=== PATIENT | female | born 1955 | race Caucasian/White ===

== ENCOUNTER 2017-03-13 07:05 | Day surgery (SDC) | payer MEDICARE, OTHER ==
[~2017-03-13] VITALS: Ht 149.9 cm; Wt 86.2 kg
[~2017-03-13 07:05] MED LIST: ADULT LOW DOSE81 MG PO; AZATHIOPRINE50 MG PO; CALCIUM CARBON650 MG PO; CALCIUM500 MG PO; CLARITIN10 M2 PO; CORGARD40 MG PO; FOLIC ACID1 MG PO; LACTULOSE20 GM/30 M PO; LASIX40 MG PO; LEVAQUIN250 MG PO; MAG-OXIDE400 MG PO; MULTIVITAMINS1 EAC7 PO; NADOLOL40 MG PO; NORCO 5-325 TA1 EACH PO; OMEPRAZOLE20 MG PO; PRILOSEC20 MG PO; PROVENTIL HFA6.7 GM INH; SPACE CHAMBER1 EACH MC; SPIRONOLACTONE100 MG PO; SPIRONOLACTONE25 MG PO; TACROLIMUS0.5 MG PO; VITAMIN D2000 UNI1 PO; XIFAXAN550 MG PO; ZOLOFT50 MG PO
--- NOTE | 2017-03-13 10:03 | NUR ---
PT SUPPORTED BY HER AND MOTHER PRESENT FOR SUPPORT. PT WAS FRIENDLY, AND SEEMED TO BE COMFORTABLE WITH TODAY. PT REQUESTED PRAYER, WILL CONTINUE TO FOLLOW
--- NOTE | 2017-03-13 10:45 | NUR ---
03/13/17 1045 [facility] SAT 100, O2 REMOVED.
[2017-03-13] MEDS ORDERED: IBUPROFEN600 MG PO (10:53)
[2017-03-13] MEDS ORDERED: OXYCODON-ACETA1 EAC2 PO (10:53)
--- NOTE | 2017-03-13 11:55 | NUR ---
LE 1130: PT IS BACK TO DS FROM PACU. CALL LIGHT IS WITHIN REACH. WATER AND CRACKERS AT THE BEDSIDE. NO OTHER C/O'S AT THIS TIME. WILL REASSESS WITHIN THE HOUR.
--- NOTE | 2017-03-16 12:15 | OR ---
[facility] [address], [place] [address] Signed DATE OF PROCEDURE: 03/13/17 PREOPERATIVE DIAGNOSES History of hepatic transplant. Incisional hernia and confluence of incisions in upper abdomen. Umbilical hernia. POSTOPERATIVE DIAGNOSES History of hepatic transplant. Incisional hernia and confluence of incisions in upper abdomen. Umbilical hernia. PROCEDURE PERFORMED Repair of upper abdominal incisional hernia. Implantation of Prolene mesh (underlay technique, properitoneal space and reapproximation of fascial defect). Repair of umbilical hernia. SURGEON: Ab Bernard MD. ANESTHESIA General endotracheal (Cheryl Kent CRNA) and local 20 mL of 0.25% Marcaine with Epinephrine. CARTON LINER: Nurse. INDICATION This 61-year-old white woman underwent hepatic transplantation in 2012 for fatty liver related hepatic failure. She is a patient of Dr. Elio Rodriguez. She has developed a hernia at the confluence of chevron and upper midline incision. Pain in the epigastric area. CT scan confirms this to be approximately 4 cm to 6 cm in size and without sign of incarceration of hollow viscus. There was incidentally noted to be an umbilical hernia at least 2 cm in size. She is admitted to undergo a hernia repair of both of the sites, understand the risks of bleeding, infection, recurrence, and so on. FINDINGS The epigastric incisional hernia defect was approximately 5 cm or so. The properitoneal space was well-developed and Prolene mesh was implanted in the properitoneal space. Transverse reapproximation of fascial layer was able to be accomplished. Prolene pledgets were used to better secure the sutures of the mesh as well as the transverse fascial reapproximation. Electronically Signed By: AB BERNARD MD 03/16/17 1215 PATIENT NAME: VERONICA GARCIA OPERATIVE REPORT DATE OF : 59 PHYSICIAN: AB BERNARD MD REPORT #: [id number] REPORT IS CONFIDENTIAL AND NOT TO BE RELEASED WITHOUT AUTHORIZATION [facility] [address], [place] [address] Signed At the umbilicus the fascial defect was rather small certainly no greater than 2 cm and had omental fat within it. This hernia was repaired by primary and transverse reapproximation of the fascia using Prolene suture and Prolene mesh pledgets. DESCRIPTION OF PROCEDURE The patient was brought to the operating room, given a general endotracheal anesthetic. She received preoperative antibiotic Ancef, sequential compression device stockings were used and heparin subcutaneously administered. The abdomen was prepared with a Chlorhexidine solution and draped sterilely. An incision was made at the confluence of the incisions of the upper abdomen. Dissection carried through the subcutaneous tissue with blunt and electrocautery dissection identifying well in the hernia sac. There was omental fat within it. The hernia sac was dissected free from the surrounding subcutaneous tissue. It was about the size of a plum. Further dissection allowed for fascial definition more clearly. The fascial defect was approximately 5 cm to 6 cm in size. With blunt dissection, the properitoneal space was developed. The small defect in the hernia sac showed the hernia to contain only omentum. The hernia sac was reapproximated 2-0 Vicryl suture. Once the fascial edge was developed in the properitoneal space circumferentially for at least 3 cm, plans were made for implantation of mesh. A segment of Prolene mesh was cut into an oblong configuration and secured into the properitoneal space with interrupted 0 Prolene sutures with Prolene pledgets. Good coverage of the defect was noted. The fascia was able to be reapproximated transversely again using 0 Prolene sutures with Prolene pledgets. This time in horizontal mattress configuration, 10 mL of 0.25% Marcaine was injected locally and Dee's layer reapproximated with interrupted 2-0 Vicryl after irrigation. The skin was then closed with running subcuticular 3-0 Vicryl. Attention was turned to the umbilicus. An infraumbilical circumumbilical incision was made. Dissection carried through the subcutaneous tissue bluntly. The hernia was typical umbilical type with a column of fatty tissue extending to the deep dermis of the umbilicus. This was fully completely and transected at the base of the dermis of the umbilical skin. The hernia sac contained omentum. The omentum was returned to the abdominal cavity and the properitoneal space develops more fully. The fascial defect was rather small, certainly no more than 2 cm. It was deemed most appropriate to primarily repair this without mesh. An 0-Prolene suture was used in a horizontal mattress configuration, again using Prolene pledgets for stability to transversely reapproximate the defect. Four such sutures were placed. A 10 mL of 0.25% Marcaine with epinephrine was injected locally. Irrigation was undertaken. Dee's layer was reapproximated with interrupted 3-0 Vicryl. The skin was closed running subcuticular 3-0 Vicryl. Steri-Strips were applied to both wounds, as were Mepilex silver sponge dressing and an OpSite. The patient was ultimately extubated and transferred to recovery in good condition having suffered no complication. Blood loss was minimal. Electronically Signed By: AB BERNARD MD 03/16/17 1215 PATIENT NAME: VERONICA GARCIA OPERATIVE REPORT DATE OF : 59 PHYSICIAN: AB BERNARD MD REPORT #: [id number] REPORT IS CONFIDENTIAL AND NOT TO BE RELEASED WITHOUT AUTHORIZATION [address] [place] [address] Signed MD MICHAEL Martini/Jannette /[id number] cc: Elio Rodriguez MD Electronically Signed By: AB BERNARD MD 03/16/17 1215 PATIENT NAME: VERONICA GARCIA OPERATIVE REPORT DATE OF : 59 PHYSICIAN: AB BERNARD MD REPORT #: [id number] REPORT IS CONFIDENTIAL AND NOT TO BE RELEASED WITHOUT AUTHORIZATION
== END 2017-03-13 14:20 | disposition home or self-care (01) ==
LOC: DS 07:05
PROVIDERS: Surgery
PROC: 0WUF0JZ Supplement Abdominal Wall with Synthetic Substitute, Open Approach (ICD-10-PCS; principal; 2017-03-13 08:45)
PROC: 0WQF0ZZ Repair Abdominal Wall, Open Approach (ICD-10-PCS; 2017-03-13 08:45)
DX: K43.2 Incisional hernia without obstruction or gangrene (principal); K42.9 Umbilical hernia without obstruction or gangrene; K21.9 Gastro-esophageal reflux disease without esophagitis; K75.81 Nonalcoholic steatohepatitis (NASH); K74.60 Unspecified cirrhosis of liver; E66.9 Obesity, unspecified; Z94.4 Liver transplant status; Z68.38 Body mass index [BMI] 38.0-38.9, adult; Z79.82 Long term (current) use of aspirin; Z79.899 Other long term (current) drug therapy; Z79.52 Long term (current) use of systemic steroids; Z90.89 Acquired absence of other organs; Z90.710 Acquired absence of both cervix and uterus; Z98.890 Other specified postprocedural states
CPT/HCPCS: 00750; C1781; J0330; J0690; J1644; J1885; J2250; J2405; J2550; J2704; J3010; J7120

== ENCOUNTER 2017-10-26 21:03 | Emergency (ER) | payer MEDICARE, OTHER ==
[~2017-10-26] VITALS: Ht 149.9 cm; Wt 86.2 kg
[~2017-10-26 21:03] MED LIST changes: +IBUPROFEN600 MG PO; -OMEPRAZOLE20 MG PO; +OXYCODON-ACETA1 EAC2 PO
[2017-10-26] MEDS ORDERED: OMEPRAZOLE20 MG PO (21:41)
--- OUTSIDE RECORDS SUMMARY | 2017-10-26 22:18 | XMS | Clinical Summary ---
Demographics + + + | Address | [address] | | | [place] [address] | + + + | Home Phone | | + + + | Preferred Language | Unknown | + + + | Marital Status | | + + + | Gnosticist Affiliation | Unknown | + + + | Race | Unknown | + + + | Ethnic Group | Unknown | + + + Author + + + | Author | [facility] | | | and [place] | + + + | Organization | [facility] | | | and [place] | + + + | Address | Unknown | + + + | Phone | Unavailable | + + + Support + + + + + | Name | Relationship | Address | Phone | + + + + + | Chaparrita Green | ECON | [address] | | | | | [place] | | | | | [address] | | + + + + + | Melchor Lopez | ECON | [address] | | | | | [place] | | | | | [address] | | + + + + + Care Team Providers + +------+ + | Care Account Administrator Name | Role | Phone | + +------+ + PP | Unavailable | + +------+ + Allergies Not on File Current Medications Not on file Active Problems Not on file Social History + +-------+ +--------+------+ | Tobacco Use | Types | Packs/Day | Years | Date | | | | | Used | | + +-------+ +--------+------+ | Never Assessed | | | | | + +-------+ +--------+------+ + + + | Sex Assigned at | Date Recorded | | | | + + + | Not on file | | + + + Plan of Treatment + + + + + | Health Maintenance | Due Date | Last Done | Comments | + + + + + | Hepatitis C | | | | | Screening | 7 | | | + + + + + | Vaccine: | | | | | Dtap/Tdap/Td (1 - | 6 | | | | Tdap) | | | | + + + + + | CERVICAL CANCER | | | | | SCREENING (PAP EVERY | 8 | | | | 3 YEARS 21-64 ) | | | | + + + + + | BREAST CANCER | | | | | SCREENING (MAMM Q2 | 7 | | | | YEARS 50-74) | | | | + + + + + | COLON CANCER | | | | | SCREENING | 7 | | | | (COLONOSCOPY EVERY | | | | | 10 YEARS 50-75) | | | | + + + + + | Vaccine: Influenza | | | | | (Season Ended) | 8 | | | + + + + + Results Not on filefrom Last 3 Months"
--- OUTSIDE RECORDS SUMMARY | 2017-10-26 22:18 | XMS | Encounter Summary ---
Demographics + + + | Address | [address] | | | [place] [address] | + + + | Home Phone | | + + + | Preferred Language | Unknown | + + + | Marital Status | | + + + | Cheondoism Affiliation | NRP | + + + | Race | White | + + + | Ethnic Group | Not or | + + + Author + + + | Author | [facility] | + + + | Organization | [facility] | + + + | Address | Unknown | + + + | Phone | Unavailable | + + + Support + + + + + | Name | Relationship | Address | Phone | + + + + + | Cher Lopez | ECON | [address] | | | | | [place] | | | | | [address] | | + + + + + | Chaparrita Green | ECON | Unknown | | + + + + + | Bruna Murillo | ECON | Unknown | | + + + + + Care Team Providers + +------+ + | Care Show Design Supervisor Name | Role | Phone | + +------+ + | Elio Rodriguez MD | PCP | | + +------+ + Encounter Details +--------+ + + + + | Date | Type | Department | Care Team | Description | +--------+ + + + + | 09/16/ | Abstract | Transplant | [facility] | | | 2017 | | Coordinators [address] MD [address] | | | | | [facility] | [place], [place] | | | | | Road [place], [place] | [address] | | | | | [address] | [phone] | | | | | [phone] | | | +--------+ + + + + Social History + +-------+ +--------+------+ | Tobacco Use | Types | Packs/Day | Years | Date | | | | | Used | | + +-------+ +--------+------+ | Never Smoker | | | | | + +-------+ +--------+------+ + + +---------+ + | Alcohol Use | Drinks/We | oz/Week | Comments | | | ek | | | + + +---------+ + | No | | | | + + +---------+ + + + + | Sex Assigned at | Date Recorded | | | | + + + | Not on file | | + + + as of this encounter Plan of Treatment +--------+---------+ + + + | Date | Type | Specialty | Care Team | Description | +--------+---------+ + + + | 04/28/ | Office | Liver Transplant | [facility] | | | 2018 | Visit | | MD Ino [address] | | | | | | [place], [place] | | | | | | [address] | | | | | | [phone] | | | | | | | | +--------+---------+ + + + as of this encounter Results LIVER TRANSPLANT POST PANEL (EXT RESULTS) (07/03/2017 9:08 AM) + + + + | Component | Value | Ref Range | + + + + | SODIUM, PLASMA (LAB) | 140 | mmol/L | + + + + | POTASSIUM, PLASMA | 4.8 | mmol/L | | (LAB) | | | + + + + | CHLORIDE, PLASMA | 106 | mmol/L | | (LAB) | | | + + + + | TOTAL CO2, PLASMA | 24 | mmol/L | | (LAB) | | | + + + + | GLUCOSE, PLASMA | 145 (A) | 65 - 110 mg/dL | | (LAB) | | | + + + + | BUN, PLASMA (LAB) | 27 | mg/dL | + + + + | CREATININE PLASMA | 1.54 | mg/dL | | (LAB) | | | + + + + | CALCIUM, PLASMA | 9.4 | mg/dL | | (LAB) | | | + + + + | PHOSPHORUS, PLASMA | 2.5 | mg/dL | | (LAB) | | | + + + + | MAGNESIUM,PLASMA | 1.8 | mg/dL | + + + + | TOTAL PROTEIN, | 6.2 | g/dL | | PLASMA (LAB) | | | + + + + | ALBUMIN, PLASMA | 4.2 | g/dL | | (LAB) | | | + + + + | BILIRUBIN TOTAL | 0.9 | Transcutaneous | | | | Bilirubinometer | + + + + | BILIRUBIN DIRECT | 0.2 | mg/dL | + + + + | ALK PHOS | 86 | U/L | + + + + | AST(SGOT) | 28 | U/L | + + + + | ALT (SGPT) | 13 | U/L | + + + + | URIC ACID, PLASMA | 7.4 | mg/dL | | (LAB) | | | + + + + | WHITE CELL COUNT | 3.1 | K/cu mm | + + + + | HEMATOCRIT | 34.8 | % | + + + + | HEMOGLOBIN | 11.7 (A) | 12.1999 - 15 g/dL | + + + + | PLATELET COUNT | 118 | K/cu mm | + + + + | TACROLIMUS (FK 506) | 5.8 | ng/mL | + + + + + + + | Specimen | Performing Laboratory | + + + | Blood | [facility] [address] [place] [place] | + + + in this encounter Visit Diagnoses Not on filein this encounter"
--- OUTSIDE RECORDS SUMMARY | 2017-10-26 22:18 | XMS | Encounter Summary ---
Demographics + + + | Address | [address] | | | [place] [address] | + + + | Home Phone | | + + + | Preferred Language | Unknown | + + + | Marital Status | | + + + | Episcopal Affiliation | NRP | + + + | Race | White | + + + | Ethnic Group | Not or | + + + Author + + + | Author | [facility] | + + + | Organization | [facility] | + + + | Address | Unknown | + + + | Phone | Unavailable | + + + Support + + + + + | Name | Relationship | Address | Phone | + + + + + | Cher Lopez | ECON | [address] | | | | | [place] | | | | | [address] | | + + + + + | Chaparrita Green | ECON | Unknown | | + + + + + | Bruna Murillo | ECON | Unknown | | + + + + + Care Team Providers + +------+ + | Care Buckshot Swage Operator Name | Role | Phone | + +------+ + | Elio Rodriguez MD | PCP | | + +------+ + Encounter Details +--------+ + + + + | Date | Type | Department | Care Team | Description | +--------+ + + + + | 09/10/ | Abstract | Transplant | [facility] | | | 2017 | | Coordinators [address]inn[address] MD [address] | | | | | [facility] | [place], [place] | | | | | [place], [place] | [address] | | | | | [address] | [phone] | | | | | [phone] | | | +--------+ + + + [...] 2018 | Visit | | MD Ino [address] | | | | | | [place], [place] | | | | | | [address] | | | | | | [phone] | | | | | | | | +--------+---------+ + + + as of this encounter Results LIVER TRANSPLANT POST PANEL (EXT RESULTS) (09/09/2017 9:33 AM) + + + + | Component | Value | Ref Range | + + + + | SODIUM, PLASMA (LAB) | 140 | mmol/L | + + + + | POTASSIUM, PLASMA | 4.7 | mmol/L | | (LAB) | | | + + + + | CHLORIDE, PLASMA | 109 | mmol/L | | (LAB) | | | + + + + | TOTAL CO2, PLASMA | 23 | mmol/L | | (LAB) | | | + + + + | GLUCOSE, PLASMA | 128 (A) | 65 - 110 mg/dL | | (LAB) | | | + + + + | BUN, PLASMA (LAB) | 36 | mg/dL | + + + + | CREATININE PLASMA | 1.71 | mg/dL | | (LAB) | | | + + + + | CALCIUM, PLASMA | 9.6 | mg/dL | | (LAB) | | | + + + + | PHOSPHORUS, PLASMA | 3.1 | mg/dL | | (LAB) | | | + + + + | MAGNESIUM,PLASMA | 1.8 | mg/dL | + + + + | TOTAL PROTEIN, | 6.7 | g/dL | | PLASMA (LAB) | | | + + + + | ALBUMIN, PLASMA | 4.4 | g/dL | | (LAB) | | | + + + + | BILIRUBIN TOTAL | 1.1 | Transcutaneous | | | | Bilirubinometer | + + + + | BILIRUBIN DIRECT | 0.2 | mg/dL | + + + + | ALK PHOS | 106 | U/L | + + + + | AST(SGOT) | 33 | U/L | + + + + | ALT (SGPT) | 18 | U/L | + + + + | URIC ACID, PLASMA | 8.2 | mg/dL | | (LAB) | | | + + + + | WHITE CELL COUNT | 3.4 | K/cu mm | + + + + | HEMATOCRIT | 32.7 | % | + + + + | HEMOGLOBIN | 11.4 (A) | 12.1999 - 15 g/dL | + + + + | PLATELET COUNT | 128 | K/cu mm | + + + + | TACROLIMUS (FK 506) | 5.2 | ng/mL | + + + + + + + | Specimen | Performing Laboratory | + + + | Blood | [facility] [address] [place] | + + + in this encounter Visit Diagnoses Not on filein this encounter"
--- OUTSIDE RECORDS SUMMARY | 2017-10-26 22:18 | XMS | Encounter Summary ---
Demographics + + + | Address | [address] | | | [place] [address] | + + + | Home Phone | | + + + | Preferred Language | Unknown | + + + | Marital Status | | + + + | Gnosticism Affiliation | NRP | + + + | Race | White | + + + | Ethnic Group | Not or | + + + Author + + + | Author | [facility] | + + + | Organization | [facility] | + + + | Address | Unknown | + + + | Phone | Unavailable | + + + Support + + + + + | Name | Relationship | Address | Phone | + + + + + | Cher Lopez | ECON | [address] | | | | | [place] | | | | | [address] | | + + + + + | Chaparrita Green | ECON | Unknown | | + + + + + | Bruna Murillo | ECON | Unknown | | + + + + + Care Team Providers + +------+ + | Care Independent Trader Name | Role | Phone | + +------+ + | Elio Rodriguez MD | PCP | | + +------+ + Reason for Visit + + + | Reason | Comments | + + + | Refill Request | | + + + Encounter Details +--------+--------+ + + + | Date | Type | Department | Care Team | Description | +--------+--------+ + + + | 09/10/ | Refill | Transplant | [facility] | Refill Request | | 2018 | | Coordinators [address] MD [address] | | | | | [address] | [place], [place] | | | | | [place], [place] | [address] | | | | | [address] | [phone] | | | | | [phone] | | | +--------+--------+ + + + Social History + +-------+ [...] [facility] | | | 2017 | Visit | | MD In[address] | | | | | | [place], [place] | | | | | | [address] | | | | | | [phone] | | | | | | | | +--------+---------+ + + + as of this encounter Visit Diagnoses Not on filein this encounter"
--- OUTSIDE RECORDS SUMMARY | 2017-10-26 22:18 | XMS | Encounter Summary ---
Demographics + + + | Address | [address] | | | [place] [address] | + + + | Home Phone | | + + + | Preferred Language | Unknown | + + + | Marital Status | | + + + | Mu-Ism Affiliation | NRP | + + + | Race | White | + + + | Ethnic Group | Not or | + + + Author + + + | Author | [facility] | + + + | Organization | [facility] | + + + | Address | Unknown | + + + | Phone | Unavailable | + + + Support + + + + + | Name | Relationship | Address | Phone | + + + + + | Cher Lopez | ECON | [address] | | | | | [place] | | | | | [address] | | + + + + + | Chaparrita Green | ECON | Unknown | | + + + + + | Bruna Murillo | ECON | Unknown | | + + + + + Care Team Providers + +------+ + | Care Manager Of Training Name | Role | Phone | + [...] | | Coordinators [address] MD [address] | | | | | [facility] | [place], [place] | | | | | [place], [place] | [address] | | | | | [address] | [phone] | | | | | [phone] | | | +--------+ + + + [...] 2018 | Visit | | MD Ino [address] | | | | | | [place], [place] | | | | | | [address] | | | | | | [phone] | | | | | | | [...] | Blood | [facility] [address] [place] | + + + in this encounter Visit Diagnoses Not on filein this encounter"
--- OUTSIDE RECORDS SUMMARY | 2017-10-26 22:18 | XMS | Encounter Summary ---
Demographics + + + | Address | [address] | | | [place] [address] | + + + | Home Phone | | + + + | Preferred Language | Unknown | + + + | Marital Status | | + + + | Worship Affiliation | NRP | + + + | Race | White | + + + | Ethnic Group | Not or | + + + Author + + + | Author | [facility] | + + + | Organization | [facility] | + + + | Address | Unknown | + + + | Phone | Unavailable | + + + Support + + + + + | Name | Relationship | Address | Phone | + + + + + | Cher Lopez | ECON | [address] | | | | | [place] | | | | | [address] | | + + + + + | Chaparrita Green | ECON | Unknown | | + + + + + | Bruna Murillo | ECON | Unknown | | + + + + + Care Team Providers + +------+ + | Care Sales Promotion Representative Name | Role | Phone | + [...] Description | +--------+--------+ + + + | 09/09/ | Refill | Liver Transplant | [facility] | Refill Request | | 2017 | | at [facility] 2nd Floor | MD Ino [address] | | | | | [address] | [place], [place] | | | | | [facility] | [address] | | | | | [place], [place] | [phone] | | | | | [address] | | | | | | [phone] | | | +--------+--------+ + + + [...] 2017 | Visit | | MD Ino [address] | | | | | | [place], [place] | | | | | | [address] | | | | | | [phone] | | | | | | | | +--------+---------+ + + + as of this encounter Visit Diagnoses + + | Diagnosis | + + | Liver replaced by transplant (HCC) | + + | Liver replaced by transplant | + +"
--- OUTSIDE RECORDS SUMMARY | 2017-10-26 22:18 | XMS | Clinical Summary ---
Demographics + + + | Address | [address] | | | [place] [address] | + + + | Home Phone | | + + + | Preferred Language | Unknown | + + + | Marital Status | | + + + | Jew Affiliation | NRP | + + + | Race | White | + + + | Ethnic Group | Not or | + + + Author + + + | Author | [facility] | + + + | Organization | [facility] | + + + | Address | Unknown | + + + | Phone | Unavailable | + + + Support + + + + + | Name | Relationship | Address | Phone | + + + + + | Cher Lopez | ECON | [address] | | | | | [place] | | | | | [address] | | + + + + + | Chaparrita Green | ECON | Unknown | | + + + + + | Bruna Murillo | ECON | Unknown | | + + + + + Care Team Providers + +------+ + | Care Irrigation District Manager Name | Role | Phone | + +------+ + | Elio Rodriguez MD | PP | | + +------+ + Source Comments MARYELLEN is fully live on both EpicCare Ambulatory and EpicCare InPatient.[facility] Allergies + + + + + + | Active Allergy | Reactions | Severity | Noted | Comments | | | | | Date | | + + + + + + | Adhesive Tape | Rash | | 12/20/19 | Skin tear | | | | | 14 | | + + + + + + Current Medications + + +---------+---------+------+------+-------+ | Prescription | Sig. | Disp. | Refills | Star | End | Statu | | | | | | t | Date | s | | | | | | Date | | | + + +---------+---------+------+------+-------+ | calcium carbonate | Take 1 tablet by | 100 | 5 | 12/05 | | Activ | | 500 mg elemental | mouth three times | tablet | | 03/26 | | e | | (1,250 mg total | daily. | | | 14 | | | | salt) oral tablet | | | | | | | + + +---------+---------+------+------+-------+ | cholecalciferol, | Take 1 capsule by | 100 | 5 | 06/1 | | Activ | | Vitamin D3, (VITAMIN | mouth once daily. | capsule | | 9/20 | | e | | D3) 2,000 unit oral | | | | 14 | | | | capsule | | | | | | | + + +---------+---------+------+------+-------+ | multivitamin oral | Take 1 capsule by | 100 | 5 | 06/1 | | Activ | | capsule | mouth once daily. | capsule | | 9/20 | | e | | | | | | 14 | | | + + +---------+---------+------+------+-------+ | aspirin EC | Take 1 tablet by | 100 | 5 | 06/1 | | Activ | | (ASPIRIN EC) 81 mg | mouth once daily. | tablet | | 9/20 | | e | | oral tablet,delayed | | | | 14 | | | | release (DR/EC) | | | | | | | + + +---------+---------+------+------+-------+ | magnesium oxide | Take 2 tablets by | 100 | 5 | 10/0 | | Activ | | 400 mg oral | mouth two times | tablet | | 7/20 | | e | | tabletIndications: | daily. Indications: | | | 14 | | | | hypomagnesemia | HYPOMAGNESEMIA | | | | | | + + +---------+---------+------+------+-------+ | folic acid 1 mg | Take 1 tablet by | 100 | 5 | 08/3 | | Activ | | oral tablet | mouth once daily. | tablet | | 0/20 | | e | | | V42.7 | | | 16 | | | + + +---------+---------+------+------+-------+ | azaTHIOprine 50 mg | Take 1 tablet by | 90 | 3 | 07/2 | | Activ | | oral | mouth once daily in | tablet | | 7/20 | | e | | tabletIndications: | the evening. Z94.4 | | | 17 | | | | Prevention of Liver | Indications: | | | | | | | Transplant Rejection | Prevention of Liver | | | | | | | | Transplant Rejection | | | | | | + + +---------+---------+------+------+-------+ | TACROLIMUS 1 mg | TAKE 2 CAPSULES | 360 | 2 | 03/0 | | Activ | | oral | TWICE A DAY | capsule | | 01/23 | | e | | capsuleIndications: | | | | 18 | | | | Liver replaced by | | | | | | | | transplant (HCC) | | | | | | | + + +---------+---------+------+------+-------+ | OMEPRAZOLE 20 mg | TAKE 1 CAPSULE DAILY | 90 | 3 | 03/0 | | Activ | | oral capsule,delayed | | capsule | | 02/23 | | e | | release(DR/EC) | | | | 18 | | | + + +---------+---------+------+------+-------+ Active Problems + + + | Problem | Noted Date | + + + | Liver transplanted (HCC) | 01/25/2014 | + + + | DUEÑAS (nonalcoholic steatohepatitis) | 07/20/2013 | + + + | GERD with stricture | 07/20/2013 | + + + Resolved Problems + + + + | Problem | Noted | Resolved | | | Date | Date | + + + + | Cellulitis | 01/26/20 | | | | 14 | 4 | + + + + | Anasarca | 01/14/20 | | | | 14 | 4 | + + + + | End-stage liver disease (HCC) | 12/20/19 | | | | 14 | 4 | + + + + | Coagulopathy (HCC) | 11/27/19 | | | | 14 | 4 | + + + + | Thrombocytopenia (HCC) | 11/27/19 | | | | 14 | 4 | + + + + | Acute renal failure (HCC) | 11/26/19 | | | | 14 | 4 | + + + + | Hepatorenal syndrome (HCC) | 11/26/19 | | | | 14 | 4 | + + + + + + | Overview: Type II | + + + + + + | Bacterial peritonitis (HCC) | 11/25/19 | | | | 14 | 4 | + + + + | Cirrhosis (HCC) | 12/10/19 | | | | 13 | 4 | + + + + | Ascites | 12/10/19 | | | | 13 | 4 | + + + + | Encephalopathy | 12/10/19 | | | | 13 | 4 | + + + + Encounters +--------+ + + + + | Date | Type | Specialty | Care Team | Description | +--------+ + + + + | 09/16/ | Abstract | | Etta Avelar | | | 2018 | | | MD Ino | | +--------+ + + + + | 09/10/ | Refill | | Etta Avelar | Refill Request | | 2017 | | | E, MD | | +--------+ + + + + | 09/10/ | Abstract | | Etta Avelar | | | 2017 | | | E, MD | | +--------+ + + + + | 09/09/ | Refill | | Etta Avelar | Refill Request | | 2017 | | | E, MD | | +--------+ + + + + from Last 3 Months Immunizations + + + + | Name | Dates Previously Given | Next Due | + + + + | HepA-Adult | 07/16/2013 | | + + + + | HepB-Adult | 09/02/2013, 06/16/1996 | | + + + + | Influenza, split | 04/13/2014 | | + + + + | PCV13 | 07/16/2013 | | + + + + | Td (adult), adsorbed | 09/02/2013 | | + + + + | Tdap | 10/21/2005 | | + + + + Family History + + +------+ + | Medical History | Relation | Name | Comments | + + +------+ + | Alcohol/Drug | Father | | | + + +------+ + | GI | Father | | cirrhosis | + + +------+ + | Additional Family | Mother | | copd | | History | | | | + + +------+ + + +------+--------+ + | Relation | Name | Status | Comments | + +------+--------+ + | Father | | | | + +------+--------+ + | Mother | | | | + +------+--------+ + Social History + +-------+ +--------+------+ | [...] on file | | + + + Last Filed Vital Signs + + + + | Vital Sign | Reading | Time Taken | + + + + | Blood Pressure | 139/66 | 04/22/2017 11:00 AM PDT | + + + + | Pulse | 83 | 04/22/2017 11:00 AM PDT | + + + + | Temperature | 36.7 C (98.1 F) | 04/22/2017 11:00 AM PDT | + + + + | Respiratory Rate | 14 | 06/04/2016 11:15 AM PST | + + + + | Oxygen Saturation | 100% | 04/22/2017 11:00 AM PDT | + + + + | Inhaled Oxygen | - | - | | Concentration | | | + + + + | Weight | 86.2 kg (190 lb) | 06/04/2016 11:15 AM PST | + + + + | Height | 149.9 cm (4' 11") | 01/26/2014 5:02 AM PDT | + + + + | Body Mass Index | 38.38 | 06/04/2016 11:15 AM PST | + + + + Plan of Treatment +--------+---------+ + + + | Date | Type | Specialty | Care Team | Description | +--------+---------+ + + + | 04/28/ | Office | | Etta Avelar | | | 2018 | Visit | | MD Ino [address] | | | | | | [place] [facility] [place] | | | | | | [address] | | | | | | [phone] | | | | | | | | +--------+---------+ + + + + + + + + | Health Maintenance | Due Date | Last Done | Comments | + + + + + | INFLUENZA VACCINE | | 04/13/2014 | | | (FLU SHOT) | 8 | | | + + + + + Results LIVER TRANSPLANT POST PANEL (EXT RESULTS) [...] | Blood | [facility] [place] [address] | + + + from Last 3 Months
--- OUTSIDE RECORDS SUMMARY | 2017-10-26 22:18 | XMS | Clinical Summary ---
Demographics + + + | Address | [address] | | | [place] [address] | + + + | Home Phone | | + + + | Preferred Language | Unknown | + + + | Marital Status | | + + + | Gnosticist Affiliation | NRP | + + + | Race | White | + + + | Ethnic Group | Not or | + + + Author + + + | Author | [facility] | + + + | Organization | [facility] | + + + | Address | Unknown | + + + | Phone | Unavailable | + + + Support + + + + + | Name | Relationship | Address | Phone | + + + + + | Cher Lopez | ECON | [address] | | | | | [place] | | | | | [address] | | + + + + + | Chaparrita Green | ECON | Unknown | | + + + + + | Bruna Murillo | ECON | Unknown | | + + + + + Care Team Providers + +------+ + | Care Metal Fabricator Helper Name | Role | Phone | + +------+ + | Elio Rodriguez MD | PP | | + +------+ + Source Comments MARYELLEN is fully live on both EpicCare Ambulatory and EpicCare InPatient.[facility] Allergies + + + + + + [...] 2018 | Visit | | MD Ino [address] | | | | | | [place] [facility] [place] | | | | | | [address] | | | | | | [phone] | | | | | | | [...] | Blood | [facility] [place] [address] | + + + from Last 3 Months
--- OUTSIDE RECORDS SUMMARY | 2017-10-26 22:18 | XMS | Encounter Summary ---
Demographics + + + | Address | [address] | | | [place] [address] | + + + | Home Phone | | + + + | Preferred Language | Unknown | + + + | Marital Status | | + + + | Latter-Day Affiliation | NRP | + + + | Race | White | + + + | Ethnic Group | Not or | + + + Author + + + | Author | [facility] | + + + | Organization | [facility] | + + + | Address | Unknown | + + + | Phone | Unavailable | + + + Support + + + + + | Name | Relationship | Address | Phone | + + + + + | Cher Lopez | ECON | [address] | | | | | [place] | | | | | [address] | | + + + + + | Chaparrita Green | ECON | Unknown | | + + + + + | Bruna Murillo | ECON | Unknown | | + + + + + Care Team Providers + +------+ + | Care Retail Banking Manager Name | Role | Phone | [...] | | Coordinators [address] MD [address] | | | | | [address] | [place], [place] | | | | | [place], [place] | [address] | | | | | [address] | [phone] | | | | | [phone] | | | +--------+--------+ + + + [...] 2017 | Visit | | MD Ino [address] | | | | | | [place], [place] | | | | | | [address] | | | | | | [phone] | | | | | | | | +--------+---------+ + + + as of this encounter Visit Diagnoses Not on filein this encounter"
--- OUTSIDE RECORDS SUMMARY | 2017-10-26 22:18 | XMS | Encounter Summary ---
Demographics + + + | Address | [address] | | | [place] [address] | + + + | Home Phone | | + + + | Preferred Language | Unknown | + + + | Marital Status | | + + + | Episcopal Affiliation | NRP | + + + | Race | White | + + + | Ethnic Group | Not or | + + + Author + + + | Author | [facility] | + + + | Organization | [facility] | + + + | Address | Unknown | + + + | Phone | Unavailable | + + + Support + + + + + | Name | Relationship | Address | Phone | + + + + + | Cher Lopez | ECON | [address] | | | | | [place] | | | | | [address] | | + + + + + | Chaparrita Green | ECON | Unknown | | + + + + + | Bruna Murillo | ECON | Unknown | | + + + + + Care Team Providers + +------+ + | Care Chinese Instructor Name | Role | Phone | + [...] Request | | 2017 | | at [facility] 2nd Floor | MD Ino [address] | | | | | [address] | [place], [place] | | | | | [facility] | [address] | | | | | [place], [place] | [phone] | | | | | [address] | | | | | | [phone] | | | +--------+--------+ + + + [...] 2017 | Visit | | MD Ino [address] | | | | | | [place], [place] | | | | | | [address] | | | | | | [phone] | | | | | | | | +--------+---------+ + + + as of this encounter Visit Diagnoses + + | Diagnosis | + + | Liver replaced by transplant (HCC) | + + | Liver replaced by transplant | + +"
--- OUTSIDE RECORDS SUMMARY | 2017-10-26 22:18 | XMS | Encounter Summary ---
Demographics + + + | Address | [address] | | | [place] [address] | + + + | Home Phone | | + + + | Preferred Language | Unknown | + + + | Marital Status | | + + + | Caodaism Affiliation | NRP | + + + | Race | White | + + + | Ethnic Group | Not or | + + + Author + + + | Author | [facility] | + + + | Organization | [facility] | + + + | Address | Unknown | + + + | Phone | Unavailable | + + + Support + + + + + | Name | Relationship | Address | Phone | + + + + + | Cher Lopez | ECON | [address] | | | | | [place] | | | | | [address] | | + + + + + | Chaparrita Green | ECON | Unknown | | + + + + + | Bruna Murillo | ECON | Unknown | | + + + + + Care Team Providers + +------+ + | Care Casting Machine Operator Name | Role | Phone | [...] | | Coordinators [address]inn[address] MD [address] | | | | | [address] [facility] | [place], [place] | | | | | [place], [place] | [address] | | | | | [address] | [phone] | | | | | [phone] | | | +--------+ + + + [...] 2018 | Visit | | MD Ino [address] | | | | | | [place], [place] | | | | | | [address] | | | | | | [phone] | | | | | | | [...] | Blood | [facility] [place] [address] [place] | + + + in this encounter Visit Diagnoses Not on filein this encounter"
--- OUTSIDE RECORDS SUMMARY | 2017-10-26 22:19 | XMS | Clinical Summary ---
Demographics + + + | Address | [address] | | | [place] [address] | + + + | Home Phone | | + + + | Preferred Language | Unknown | + + + | Marital Status | | + + + | Christian Affiliation | Unknown | + + + | Race | Unknown | + + + | Ethnic Group | Unknown | + + + Author + + + | Author | [facility] | | | and [place] | + + + | Organization | [facility] | | | and [place] | [...] [place] | | | | | [address] | | + + + + + | Melchor Lopez | ECON | [address] | | | | | [place] | | | | | [address] | | + + + + + Care Team Providers + +------+ + | Care Technical Analyst Name | Role | Phone | + [...]
== END 2017-10-26 23:36 | disposition home or self-care (01) ==
LOC: ED 21:03
PROC: 2W3CX1Z Immobilization of Right Lower Arm using Splint (ICD-10-PCS; principal; 2017-10-26)
DX: S60.211A Contusion of right wrist, initial encounter (principal); K21.9 Gastro-esophageal reflux disease without esophagitis; M81.0 Age-related osteoporosis without current pathological fracture; Z88.8 Allergy status to other drugs, medicaments and biological substances; Z79.82 Long term (current) use of aspirin; Z79.899 Other long term (current) drug therapy; W19.XXXA Unspecified fall, initial encounter; W22.8XXA Striking against or struck by other objects, initial encounter
CPT/HCPCS: 29125; 73110; 99283

== ENCOUNTER 2024-01-27 11:58 | Day surgery (SDC) | payer MEDICARE, OTHER ==
[~2024-01-27] VITALS: Ht 149.9 cm; Wt 81.8 kg
[~2024-01-27 11:58] MED LIST changes: +IBLOOD GLUCOSE TEST STRIP 1 EA TEST VI PRN; +LACTATED RINGER'S 1,000 ML IV SCH; +LIDOCAINE HCL 1% 5 ML SDV INJ ONE; +MIDAZOLAM HCL 5 MG/5 ML VIAL IV PRN; +OMEPRAZOLE20 MG PO; +fentaNYL citrate 100 MCG/2 ML VIAL IV PRN
[2024-01-27 12:17] VITALS: BP 139/74
[2024-01-27] MEDS ORDERED: MIDAZOLAM HCL 5 MG/5 ML VIAL ONE (13:02)
[2024-01-27] MEDS ORDERED: fentaNYL citrate 100 MCG/2 ML VIAL ONE (13:02)
--- NOTE | 2024-01-27 14:07 | NUR ---
01/27/24 1407 Radha Horner 1401-PATIENT ARRIVED TO PACU ON 3L NC PLACED ON 2L. PATIENT REACTIVE TO VERBAL STIMULI DENIES PAIN OR NAUSEA. ENCOURAGED TO PASS GAS. IVF INFUSING. PATIENT DOZES TO SLEEP. ABDOMEN SOFT. 1407-PATIENT SLEEPING 2L NC 97% RR EVEN.
[2024-01-27 14:54] VITALS: BP 150/77
--- NOTE | 2024-01-29 09:47 | OR ---
[facility] [address] [place], [place] [address] Signed DATE OF OPERATION: 01/27/2024 SURGEON: Ab Bernard MD PREOPERATIVE DIAGNOSES: 1. Colon screening. 2. History of liver transplant for end-stage liver failure, 2013. POSTOPERATIVE DIAGNOSIS: Mild proctitis; mild inflammation at splenic flexure. PROCEDURE: Total colonoscopy to cecum with biopsy of splenic flexure and rectum. ANESTHESIA: Intravenous sedation; fentanyl 150 mcg and Versed 5 mg. INDICATION: This 68-year-old white woman is a patient DrAbbi Rodriguez. She last underwent colonoscopy in 2010, which showed mild proctitis. The patient underwent liver transplant in 2013, which has been impressively successful and she remains asymptomatic from a hepatobiliary standpoint. She has been referred for screening colonoscopy. She does have family history of polyps. No family history of colon cancer. She has no symptoms of bleeding diarrhea or constipation. She understands the risk of colonoscopy. She wished to proceed. FINDINGS: The prep was good. Complete colonoscopy was undertaken to the cecum. Passage beyond hepatic flexure were slightly challenging, but ultimately full in total intubation. The cecum was accomplished. She had no evidence of polyps, diverticular formation, colitis, or cancer, but she did have mild proctitis and a small amount of inflammation at splenic flexure. DESCRIPTION OF PROCEDURE: The patient was brought to the endoscopy suite and placed in lateral decubitus position given intravenous sedation to the point of slurred speech and nystagmus with full cardiopulmonary monitoring. Digital rectal examination was normal. An Olympus video colonoscope was passed in the rectum and manipulated throughout the colon, ultimately intubating the cecum itself. The ileocecal valve and appendiceal orifice were normal. The scope was withdrawn from that point and examination throughout Electronically Signed By: AB BERNARD MD 01/29/24 0947 PATIENT NAME: VERONICA GARCIA OPERATIVE REPORT DATE OF : 59 REPORT #: [id number] PHYSICIAN: AB BERNARD MD PCP: BAYRON RODRIGUEZ MD REPORT IS CONFIDENTIAL AND NOT TO BE RELEASED WITHOUT AUTHORIZATION [facility] [address] [place], [place] [address] Signed showed no sign of abnormality until the splenic flexure where there is mild inflammatory change, though not much and certainly no ischemic colitis. Biopsies were obtained nevertheless. The scope was further withdrawn. In the rectum, a punctate proctitis appearance was noted. Biopsies were obtained there as well. Retroflexed view was undertaken, which showed no other abnormalities. Scope was removed and the patient was taken recovery room in good condition. CONCLUDING DIAGNOSIS: Mild proctitis, possible mild inflammation at splenic flexure. PLAN: Recommend repeat colonoscopy in 10 years sooner if clinically indicated. She will return to the ongoing care of Dr. Mendez Rodriguez. MD MICHAEL Martini/DARRELL /[id number] cc: Bayron Rodriguez MD Copies: BAYRON RODRIGUEZ MD ~ Electronically Signed By: AB BERNARD MD 01/29/24 0947 PATIENT NAME: VERONICA GARCIAN OPERATIVE REPORT DATE OF : 59 REPORT #: [id number] PHYSICIAN: AB BERNARD MD PCP: BAYRON RODRIGUEZ MD REPORT IS CONFIDENTIAL AND NOT TO BE RELEASED WITHOUT AUTHORIZATION
--- NOTE | 2024-02-02 10:36 | PATH ---
[facility] [address] [place], [place] [address] Signed SPECIMEN(S): A SPLENIC FLEXURE COLON BIOPSY SPECIMEN(S): B RECTUM BIOPSY SPECIMEN SOURCE: A. SPLENIC FLEXURE COLON BIOPSY B. RECTUM BIOPSY CLINICAL HISTORY: History of proctitis; history of colon polyps (family); GERD/mild proctitis FINAL PATHOLOGIC DIAGNOSIS: A. Splenic flexure colon, biopsy: - Unremarkable colonic mucosa, negative for colitis, granulomas or dysplasia. B. Rectum, biopsies: - Mildly hyperplastic colonic mucosa, negative for colitis, granulomas or dysplasia. AMB MICROSCOPIC EXAMINATION: Histologic sections of all submitted blocks are examined by light microscopy. These findings, together with the gross examination, support the pathologic diagnosis. GROSS DESCRIPTION: A. The specimen, labeled and designated "Ch[place], designated per requisition, splenic flexure biopsy," is received in formalin and consists of one fragment of soft helton tissue that is up to 0.6 cm in greatest dimension. Entirely submitted in (A1). B. The specimen, labeled and designated "Chualar, designated per requisition, rectum biopsy," is received in formalin and consists of two fragments of soft helton tissue that are up to 0.3 cm in greatest dimension. Entirely submitted in (B1). TW (under the direct supervision of a pathologist) The Gross Description was prepared using a voice recognition system. The report was reviewed for accuracy; however, sound-alike word errors, addition and/or deletions may occur. If there is any question about this report, please contact Client Services. ADDITIONAL NOTES: Immunohistochemical and/or in situ hybridization studies if performed in this case included appropriate positive controls that reacted as expected. This PATIENT NAME: VERONICA GARCIA PATHOLOGY DATE OF : 59 REPORT #: [id number] PHYSICIAN: BRITTANY WOOD PCP: BAYRON REYES MD REPORT IS CONFIDENTIAL AND NOT TO BE RELEASED WITHOUT AUTHORIZATION [facility] [address] [place], [place] [address] Signed test was developed and its performance characteristics determined by [facility]. It has not been cleared or approved by the U.S. Food and Drug Administration. The FDA has determined that such clearance or approval is not necessary. This test is used for clinical purposes. It should not be regarded as investigational or for research. [facility] is certified under the Clinical Laboratory Improvement Amendments of 1988 (CLIA) as qualified to perform high complexity clinical laboratory testing. PERFORMING LABORATORY: Technical component was performed by [facility], [address] [place] [address] (CLIA# [id number]). Professional interpretation was performed by [facility] - [address] [id number] Diagnostician: Adry Coats MD Pathologist Electronically Signed 02/02/2024 Copies: ~ PATIENT NAME: VERONICA GARCIA PATHOLOGY DATE OF : 59 REPORT #: [id number] PHYSICIAN: BRITTANY WOOD PCP: BAYRON REYES MD REPORT IS CONFIDENTIAL AND NOT TO BE RELEASED WITHOUT AUTHORIZATION
== END 2024-01-27 15:00 | disposition home or self-care (01) ==
LOC: OPS 11:58 → DS 11:59 → OPS 13:00 → DS 13:00 → OPS 15:00
PROVIDERS: ATTEND Surgery
PROC: 0DBL8ZX Excision of Transverse Colon, Via Natural or Artificial Opening Endoscopic, Diagnostic (ICD-10-PCS; 2024-01-27)
PROC: 0DBP8ZX Excision of Rectum, Via Natural or Artificial Opening Endoscopic, Diagnostic (ICD-10-PCS; principal; 2024-01-27 13:00)
DX: Z12.11 Encounter for screening for malignant neoplasm of colon (principal); K62.89 Other specified diseases of anus and rectum; K63.89 Other specified diseases of intestine; K21.00 Gastro-esophageal reflux disease with esophagitis, without bleeding; Z94.4 Liver transplant status; Z91.048 Other nonmedicinal substance allergy status
CPT/HCPCS: 88305; 99153; G0500; J2250; J3010; J7121

== ENCOUNTER 2025-03-31 07:44 | Emergency (ER) | payer MEDICARE, OTHER ==
[~2025-03-31] VITALS: Ht 149.9 cm; Wt 81.0 kg
[~2025-03-31 07:44] MED LIST changes: -IBLOOD GLUCOSE TEST STRIP 1 EA TEST VI PRN; -LACTATED RINGER'S 1,000 ML IV SCH; -LIDOCAINE HCL 1% 5 ML SDV INJ ONE; -MIDAZOLAM HCL 5 MG/5 ML VIAL IV PRN; -fentaNYL citrate 100 MCG/2 ML VIAL IV PRN
[2025-03-31 08:01] VITALS: BP 154/84
[2025-03-31] MEDS ORDERED: PENICILLIN V P500 MG PO (08:11)
[2025-03-31 08:34] LABS: CORONAVIRUS COVID-19 AG NEGATIVE (NEGATIVE)
== END 2025-03-31 08:45 | disposition home or self-care (01) ==
LOC: ED 07:44
PROVIDERS: Emergency Medicine
DX: J02.9 Acute pharyngitis, unspecified (principal); K21.9 Gastro-esophageal reflux disease without esophagitis; Z91.048 Other nonmedicinal substance allergy status; Z79.82 Long term (current) use of aspirin; Z79.899 Other long term (current) drug therapy; Z94.4 Liver transplant status
CPT/HCPCS: 36415; 87651; 99283